=== PATIENT | female | born 1965 | race Caucasian/White ===

== ENCOUNTER 2017-09-06 13:42 | Emergency (ER) | payer BC ==
--- NOTE | 2017-09-06 15:58 | UC ---
Hip/Pelvis Pain - HPI Summary HPI Summary: WAS STANDING ON A BAR STOOL YESTERDAY TO PAINT. WAS REACHING FOR THE PAINT WHEN SHE FELL OFF. RIGHT HIP STRUCK A CABINET ON THE WAY DOWN. PT HERE WITH VERY TENDER SWOLLEN RIGHT BUTTOCK. ABLE TO WEIGHT BEAR WITHOUT DIFFICULTY. NO NUMBNESS/TINGLING. - History Of Current Complaint Chief Complaint: UCLowerExtremity Stated Complaint: FELL AREA ABOVE HIP INJURY Time Seen by Provider: 09/06/17 15:22 Hx Obtained From: Patient Onset/Duration: Sudden Onset, Lasting Days - 1 DAY, Still Present Timing: Constant Severity Initially: Moderate Severity Currently: Moderate Pain Intensity: 5 Pain Scale Used: 0-10 Numeric Character Of Pain: Sharp Aggravating Factor(s): Other - TOUCH Alleviating Factor(s): Rest Associated Signs And Symptoms: Positive: Swelling. Negative: Fever, Weakness, Knee Pain - Allergies/Home Medications Allergies/Adverse Reactions: Allergies Allergy/AdvReac Type Severity Reaction Status Date / Time No Known Allergies Allergy Verified 09/06/17 14:21 Home Medications: Home Medications Ibuprofen TAB* [Motrin TAB* 400 MG] 400 mg PO PRN 09/06/17 [History] PMH/Surg Hx/FS Hx/Imm Hx - Additional Past Medical History Additional PMH: OSTEOPOROSIS - Surgical History Surgical History: Yes Surgery Procedure, Year, and Place: c sect, ta - Family History Known Family History: Negative: Hypertension - Social History Alcohol Use: None Substance Use Type: None Smoking Status (MU): Never Smoked Tobacco Review of Systems Constitutional: Negative Skin: Negative Respiratory: Negative Cardiovascular: Negative Gastrointestinal: Negative Musculoskeletal: Edema, Myalgia All Other Systems Reviewed And Are Negative: Yes Physical Exam Triage Information Reviewed: Yes Appearance: Well-Appearing, No Pain Distress, Well-Nourished Vital Signs: Initial Vital Signs Temp 98.6 F 09/06/17 14:22 Pulse 72 09/06/17 14:22 Resp 16 09/06/17 14:22 BP 101/57 09/06/17 14:22 Pulse Ox 100 09/06/17 14:22 Vital Signs Reviewed: Yes Eyes: Positive: Conjunctiva Clear ENT: Positive: Hearing grossly normal Neck: Positive: Supple Respiratory: Positive: No respiratory distress, No accessory muscle use Cardiovascular: Positive: Pulses Normal Abdomen Description: Positive: Soft Musculoskeletal: Positive: ROM Intact, Edema @ - RIGHT BUTTOCK, WITH EXQUISITE TTP Neurological: Positive: Alert Psychological: Positive: Age Appropriate Behavior Skin: Negative: rashes Diagnostics - Radiology RIGHT HIP XRAY Xray Interpretation: No Acute Changes Radiology Interpretation Completed By: Radiologist Hip Injury Course/Dx - Differential Dx/Diagnosis Provider Diagnoses: HEMATOMA/CONTUSION RIGHT BUTTOCK Discharge - Discharge Plan Condition: Stable Disposition: HOME Patient Education Materials: Hematoma (ED) Referrals: Nicole Jones MD [Primary Care Provider] - If Needed Additional Instructions: XRAY TODAY NEGATIVE FOR FRACTURE OR DISLOCATION. ICE AND IBUPROFEN NEEDED. AVOID SITTING ON HARD SURFACES. CONTUSION: Your injury has resulted in a contusion -- a crushing of the deep tissues. No injury to important structures was detected during the physician's exam. Contusions vary in the amount of pain they cause, and in the length of time required for healing. Typically, the area will become bruised, and will remain painful to touch for two or three weeks. However, most patients are back to working and playing within a few days. After the initial period of rest and cold-packs, your symptoms (together with the doctor's recommendations) will determine how rapidly you can get back to full activity. Usually this means "do what feels okay, but don't do things that hurt." If re-examination was recommended, it's important to follow up as instructed. Call the doctor or return any time if pain increases, if swelling becomes severe, if you develop numbness or weakness in an injured extremity, or if any other alarming symptoms occur. SEEK FOLLOW-UP IF NOT IMPROVING EXPECTED. IT WILL LIKELY TAKE WEEKS TO MONTHS FOR COMPLETE RESOLUTION.
--- NOTE | 2017-09-06 16:15 | RAD ---
Indication: Right hip pain and swelling. 2 views of the right hip and an AP view of the pelvis demonstrates degenerative changes of the right hip. Pelvic ring is intact. There is no evidence of fracture noted. IMPRESSION: No fracture of the right hip is noted. Pelvic ring is intact.
[2017-09-06 16:53] VITALS: BP 91/43
== END 2017-09-06 16:50 | disposition home or self-care (01) ==
LOC: UCEAST 13:42
DX: S30.0XXA Contusion of lower back and pelvis, initial encounter (principal); W17.89XA Other fall from one level to another, initial encounter; Y93.89 Activity, other specified; Y92.9 Unspecified place or not applicable; M81.0 Age-related osteoporosis without current pathological fracture
CPT/HCPCS: 99212; G0463

== ENCOUNTER 2022-05-02 10:22 | Inpatient (IN) ==
[2022-05-02] MEDS ORDERED: NS 0.9% 500 ml BAG 500 ML IV ONE (10:30)
[2022-05-02] MEDS ORDERED: Ondansetron 4 mg VIAL 2 MG/ML 2 ml VIAL IV ONE (10:30)
[2022-05-02 10:56] LABS: Hematocrit 37 % (35-47); Hemoglobin 12.5 g/dL (12.0-16.0); Mean Corpuscular HGB Conc 34 g/dL (31-36); Mean Corpuscular Hemoglobin 34 pg (27-31); Mean Corpuscular Volume 99 fL (80-97); Red Blood Count 3.72 10^6 /uL (3.70-4.87); Red Cell Distribution Width 13 % (10-15); White Blood Count 6.9 10^3/uL (3.5-10.8)
[2022-05-02] MEDS ORDERED: Lactated Ringers 1000 ml BAG 1,000 ML IV ONE (11:03)
[2022-05-02] MEDS ORDERED: Azithromycin 500 mg/250 ml NS 500 MG/250 ML BAG IVPB ONE (11:04)
[2022-05-02] MEDS ORDERED: cefTRIAXone 1 gm/50 mL D5W 1 GM/50 ML BAG IV ONE (11:04)
[2022-05-02 11:09] LABS: High Sens Troponin Baseline 324 pg/mL (<15)
[2022-05-02 11:27] LABS: HCG Pregnancy 1.12 mIU/mL
[2022-05-02 11:31] LABS: PCO2 Arterial 30 mmHg (35-45); PO2 Arterial 64 mmHg (80-100)
[2022-05-02 11:51] LABS: RBC Morphology Normal (Normal)
[2022-05-02 11:52] LABS: ABS Lymphocytes 0.2 10^3/ul (1.0-4.8); ABS Monocytes 0.2 10^3/ul (0-0.8); ABS Neutrophils 6.5 10^3/ul (1.5-7.7); Lymphocyte % 3.5 %; Mean Platelet Volume 9.8 fL (7.4-10.4); Platelet Count 46 10^3/uL (150-450)
[2022-05-02 11:57] LABS: ALT 17 U/L (7-52); AST 46 U/L (13-39); Albumin 3.1 g/dL (3.2-5.2); Albumin/Globulin Ratio 1.3 (1-3); Alkaline Phosphatase 48 U/L (35-149); Anion Gap 11 mmol/L (2-11); Blood Urea Nitrogen 27 mg/dL (6-24); C Reactive Protein 238.17 mg/L (<8.01); CO2 Carbon Dioxide 23 mmol/L (22-32); Calcium 7.7 mg/dL (8.6-10.3); Chloride 98 mmol/L (101-111); Globulin 2.3 g/dL (2-4); Glucose 111 mg/dL (70-100); Lipase < 10 U/L (11.0-82.0); Potassium 3.9 mmol/L (3.5-5.0); Sodium 132 mmol/L (135-145); Total Protein 5.4 g/dL (6.4-8.9); eGFR CKD-EPI 84.1 (>60)
[2022-05-02] MEDS ORDERED: Adenosine 3 MG/ML 2 ml VIAL (6 mg) ONE (12:17)
[2022-05-02 12:18] LABS: High Sensitivity Troponin 1 Hr 342 pg/mL (<15)
[2022-05-02] MEDS ORDERED: Iodixanol (CONTRAST) 320 MG/ML 100 ML SDV IV ONE (12:18)
[2022-05-02] MEDS ORDERED: Adenosine 3 MG/ML 2 ml VIAL (6 mg) IV PUSH ONE ×4 (12:27→15:21)
[2022-05-02 14:36] LABS: Magnesium 1.7 mg/dL (1.9-2.7); Phosphorus 2.8 mg/dL (2.5-5.0)
[2022-05-02] MEDS ORDERED: Magnesium Sulfate IV 3 GM in NS 0.9% 100 ml BAG 100 ML IVPB ONE (14:45)
[2022-05-02] MEDS ORDERED: Magnesium Sulfate 2 GM IV (Premix) IVPB ONE (15:00)
[2022-05-02] MEDS ORDERED: Acetaminophen IV 1 GM/100ML 1,000 MG/100 ML BAG IV ONE (15:21)
[2022-05-02] MEDS: Acetaminophen IV 1 GM/100ML 1,000 MG/100 ML BAG IV PRN ×2 (15:23→21:32)
[2022-05-02] MEDS: NS 0.9% 1000 ml BAG 1,000 ML IV ONE ×2 (15:25→23:01)
[2022-05-02] MEDS ORDERED: Amiodarone 150 mg IVPREMIX 150 MG/100 ML BAG IV ONE (15:31)
[2022-05-02] MEDS ORDERED: Magnesium Sulfate 1 GM IV 1 GM/100 ML BAG IV ONE (16:00)
[2022-05-02] MEDS ORDERED: D5LR 1000 ml BAG 1,000 ML IV SCH (16:00)
[2022-05-02] MEDS ORDERED: KCL 20 MEQ/100 ML IVPREMIX 20 MEQ/100 ML BAG IV ONE (16:25)
[2022-05-02] MEDS: Enoxaparin 30 MG/0.3 ML SYR SUBCUT SCH (16:35)
[2022-05-02] MEDS: Metoprolol Tartrate 5 mg VIAL 5 ml VIAL (1 mg/ml) IV PRN (21:02)
[2022-05-02] MEDS ORDERED: Amiodarone 360 MG IVPREMIX 360 MG/200 ML BAG IV SCH (21:55)
[2022-05-02] MEDS ORDERED: Lactated Ringers 500 ml BAG 500 ML IV ONE ×2 (22:02→22:42)
[2022-05-03] MEDS ORDERED: Acetaminophen IV 1 GM/100ML 1,000 MG/100 ML BAG IV ONE (02:46)
[2022-05-03] MEDS ORDERED: Amiodarone 360 MG IVPREMIX 360 MG/200 ML BAG IV SCH ×2 (04:00→16:45)
[2022-05-03] MEDS ORDERED: Digoxin IV 0.5 MG/2 ML AMP (0.25 MG/ML) IV SLOW PU ONE (04:38)
[2022-05-03] MEDS ORDERED: Digoxin IV 0.5 MG/2 ML AMP (0.25 MG/ML) ONE (04:40)
[2022-05-03 05:31] LABS: Hematocrit 28 % (35-47); Hemoglobin 9.4 g/dL (12.0-16.0); Mean Corpuscular HGB Conc 33 g/dL (31-36); Mean Corpuscular Hemoglobin 33 pg (27-31); Mean Corpuscular Volume 100 fL (80-97); Mean Platelet Volume 10.3 fL (7.4-10.4); Platelet Count 41 10^3/uL (150-450); Red Blood Count 2.81 10^6 /uL (3.70-4.87); Red Cell Distribution Width 13 % (10-15); White Blood Count 4.4 10^3/uL (3.5-10.8)
[2022-05-03 05:39] LABS: Urine Appearance Cloudy; Urine Bilirubin Negative (Negative); Urine Blood 1+ (Negative); Urine Color Amber; Urine Glucose Negative (Negative); Urine Ketones Negative (Negative); Urine Nitrite Negative (Negative); Urine Protein 2+(100 mg/dL) (Negative); Urine Specific Gravity 1.035 (1.002-1.030); Urine Urobilinogen Positive (Negative)
[2022-05-03 05:48] LABS: Urine Bacteria Absent (Absent); Urine Red Blood Cell 2+(6-10/hpf) (Absent); Urine White Blood Cell Trace(0-5/hpf) (Absent)
[2022-05-03 05:52] LABS: Magnesium 1.7 mg/dL (1.9-2.7); Potassium 3.5 mmol/L (3.5-5.0); eGFR CKD-EPI 112.7 (>60)
[2022-05-03 05:55] LABS: Burr Cells 2+; Macrocytosis 1+; Toxic Granulation 1+
[2022-05-03 05:56] LABS: ABS Lymphocytes 0.1 10^3/ul (1.0-4.8); ABS Monocytes 0.2 10^3/ul (0-0.8); ABS Neutrophils 4.1 10^3/ul (1.5-7.7); Lymphocyte % 2.3 %; Nucleated Red Blood Cells % 0.1
[2022-05-03 06:03] LABS: TSH Ultra Thyroid Stim Horm 0.71 mcIU/mL (0.34-5.60)
[2022-05-03 06:20] LABS: Calcium 5.7 mg/dL (8.6-10.3)
[2022-05-03] MEDS: Metoprolol Tartrate 5 mg VIAL 5 ml VIAL (1 mg/ml) IV PRN ×2 (06:40→13:26)
[2022-05-03] MEDS ORDERED: Magnesium Sulfate 2 gm BAG 2 GM/50 ML BAG IVPB ONE (07:15)
[2022-05-03] MEDS: Acetaminophen IV 1 GM/100ML 1,000 MG/100 ML BAG IV PRN ×2 (07:38→18:54)
[2022-05-03] MEDS: KCL 20 MEQ/100 ML IVPREMIX 20 MEQ/100 ML BAG IV SCH ×2 (08:03→10:38)
[2022-05-03] MEDS ORDERED: Magnesium Sulfate 1 GM IV 1 GM/100 ML BAG IV ONE (08:15)
[2022-05-03 10:05] LABS: C Reactive Protein 188.59 mg/L (<8.01)
[2022-05-03 10:16] LABS: Hematocrit 29 % (35-47); Hemoglobin 9.9 g/dL (12.0-16.0); Mean Corpuscular HGB Conc 34 g/dL (31-36); Mean Corpuscular Hemoglobin 33 pg (27-31); Mean Corpuscular Volume 98 fL (80-97); Mean Platelet Volume 9.5 fL (7.4-10.4); Platelet Count 39 10^3/uL (150-450); Red Blood Count 2.99 10^6 /uL (3.70-4.87); Red Cell Distribution Width 13 % (10-15); White Blood Count 3.3 10^3/uL (3.5-10.8)
[2022-05-03 10:27] LABS: Folate 14.12 ng/mL (5.90-24.80)
[2022-05-03] MEDS ORDERED: CALCIUM GLUCONATE 1GM/50ML NS 1 GM/50 ML BAG IV ONE (10:56)
[2022-05-03 12:36] LABS: ABS Lymphocytes 0.1 10^3/ul (1.0-4.8); ABS Monocytes 0.1 10^3/ul (0-0.8); ABS Neutrophils 3.5 10^3/ul (1.5-7.7); Hematocrit 31 % (35-47); Hemoglobin 10.7 g/dL (12.0-16.0); Lymphocyte % 2.3 %; Mean Corpuscular HGB Conc 35 g/dL (31-36); Mean Corpuscular Hemoglobin 35 pg (27-31); Mean Corpuscular Volume 100 fL (80-97); Mean Platelet Volume 9.6 fL (7.4-10.4); Nucleated Red Blood Cells % 0.1; Platelet Count 44 10^3/uL (150-450); Red Blood Count 3.07 10^6 /uL (3.70-4.87); Red Cell Distribution Width 13 % (10-15); White Blood Count 3.7 10^3/uL (3.5-10.8)
[2022-05-03 12:37] LABS: Platelet Count 52 10^3/ul (150-450)
[2022-05-03 12:49] LABS: Activated Partial Thrombo Time 28.5 seconds (26.0-38.0); INR 1.25 (0.89-1.11)
[2022-05-03] MEDS ORDERED: LORazepam 2 mg VIAL 1 ml IV PUSH ONE (13:10)
[2022-05-03] MEDS ORDERED: Lorazepam PYXIS KEY PRN (13:10)
[2022-05-03] MEDS ORDERED: Furosemide 20 mg/2 ml IV VIAL IV ONE (13:26)
[2022-05-03] MEDS ORDERED: Digoxin IV 0.5 MG/2 ML AMP (0.25 MG/ML) IV SLOW PU SCH (14:00)
[2022-05-03 14:36] LABS: PCO2 Arterial 41 mmHg (35-45)
[2022-05-03 14:37] LABS: PO2 Arterial 59 mmHg (80-100)
[2022-05-03] MEDS ORDERED: Piperacillin/Tazobac ADVAN 3.375 GM in NS 0.9% 100 ml BAG 100 ML IV ONE (14:41)
[2022-05-03] MEDS ORDERED: cefTRIAXone 1 gm/50 mL D5W 1 GM/50 ML BAG IV SCH (14:45)
[2022-05-03 14:53] LABS: Schistocytes ABSENT
[2022-05-03] MEDS ORDERED: ZOSYN 3.375 GM x ONE DOSE over 30 miuntes IV (15:00)
[2022-05-03] MEDS ORDERED: Azithromycin 500 mg/250 ml NS 500 MG/250 ML BAG IVPB SCH (15:00)
[2022-05-03] MEDS ORDERED: Zosyn per Pharmacy NOTE FOLLOW UP SCH ×2 (15:00)
[2022-05-03] MEDS ORDERED: Rocuronium 50 mg VIAL 10 mg/ml 5 ml VIAL (50 mg) IV ONE (15:17)
[2022-05-03] MEDS ORDERED: Etomidate 20 mg/10 ml 2 MG/ML 10 ml VIAL IV ONE (15:17)
[2022-05-03] MEDS ORDERED: Etomidate 40 mg/20 ml (2 MG/ML) 20 ml VIAL (40 mg) ONE (15:18)
[2022-05-03] MEDS ORDERED: Phenylephrine 40 mcg/mL 10mL (400mcg) SYRINGE IV ONE (15:23)
[2022-05-03] MEDS ORDERED: Rocuronium 50 mg VIAL 10 mg/ml 5 ml VIAL (50 mg) ONE (15:30)
[2022-05-03] MEDS ORDERED: PHENYLEPHRINE IV ONE (15:30)
[2022-05-03] MEDS ORDERED: Succinylcholine 200 mg VIAL 20 mg/ml 10 ml VIAL (200 mg) ONE (15:30)
[2022-05-03] MEDS: Dexmedetomidine 1,000 MCG in NS 0.9% 250 ml 240 ML IV SCH (16:05)
[2022-05-03] MEDS ORDERED: Amiodarone IV 150 mg/3 ml VIAL IV PUSH ONE (16:17)
[2022-05-03] MEDS ORDERED: Amiodarone 150 mg IVPREMIX 150 MG/100 ML BAG IV ONE ×2 (16:26→16:31)
[2022-05-03] MEDS ORDERED: .Amiodarone 24HR ONLY IV Protocol Order Note IV ONE (16:31)
[2022-05-03] MEDS: Enoxaparin 30 MG/0.3 ML SYR SUBCUT SCH (16:55)
[2022-05-03] MEDS ORDERED: Enoxaparin 40 MG/0.4 ML SYR SUBCUT SCH (17:00)
[2022-05-03] MEDS ORDERED: Chlorhexidine MOUTHWASH 0.12% 15 ML UDC TOPICAL SCH ×2 (17:00→18:00)
[2022-05-03] MEDS ORDERED: Amiodarone 360 MG IVPREMIX 360 MG/200 ML BAG IV ONE (17:03)
[2022-05-03] MEDS: Pantoprazole VIAL 40 MG VIAL IV SCH (17:05)
[2022-05-03] MEDS ORDERED: Propofol 10 mg/ml 100 ML BTL 100 ML ONE (17:09)
[2022-05-03] MEDS: Propofol 10 mg/ml 100 ML BTL 100 ML IV SCH (17:10)
[2022-05-03 17:21] LABS: PCO2 Arterial 38 mmHg (35-45); PO2 Arterial 106 mmHg (80-100)
[2022-05-03 17:25] LABS: Calcium 7.5 mg/dL (8.6-10.3); Phosphorus 1.6 mg/dL (2.5-5.0); Potassium 3.9 mmol/L (3.5-5.0); eGFR CKD-EPI 112.7 (>60)
[2022-05-03] MEDS: Midazolam 2 mg/2 ml VIAL 1 mg/ml 2 ml VIAL (2 mg) IV SLOW PU PRN (17:36)
[2022-05-03] MEDS ORDERED: fentaNYL 100 mcg/2 ml 50 MCG/ML VIAL IV SLOW PU PRN (18:26)
[2022-05-03] MEDS ORDERED: Potassium Phosphate IV 15 MMOLE in NS 0.9% 250 ml 250 ML IVPB ONE (18:38)
[2022-05-03 19:26] LABS: Albumin 2.6 g/dL (3.2-5.2); Albumin/Globulin Ratio 1.1 (1-3); Globulin 2.4 g/dL (2-4)
[2022-05-03] MEDS ORDERED: PHENYLEPHRINE DRIP IVPREMIX 50 MG/250 ML BAG IV ONE (19:31)
[2022-05-03] MEDS: PHENYLEPHRINE DRIP IVPREMIX 50 MG/250 ML BAG IV SCH (19:48)
[2022-05-03] MEDS: ZOSYN 3.375 GM Q8H per EXTENDED INFUSION IV SCH (21:31)
[2022-05-03 23:04] LABS: Hematocrit 27 % (35-47); Hemoglobin 9.2 g/dL (12.0-16.0)
[2022-05-03] MEDS: Amiodarone 360 MG IVPREMIX 360 MG/200 ML BAG IV SCH (23:08)
[2022-05-04] MEDS ORDERED: fentaNYL 100 mcg/2 ml 50 MCG/ML VIAL IV SLOW PU SCH
[2022-05-04] MEDS: Propofol 10 mg/ml 100 ML BTL 100 ML IV SCH ×2 (01:41→13:56)
[2022-05-04] MEDS ORDERED: Lorazepam PYXIS KEY ONE ×2 (03:57→06:07)
[2022-05-04] MEDS ORDERED: LORazepam 2 mg VIAL 1 ml ONE ×2 (03:57→06:08)
[2022-05-04] MEDS ORDERED: Lorazepam PYXIS KEY PRN ×2 (04:06→06:07)
[2022-05-04] MEDS ORDERED: LORazepam 2 mg VIAL 1 ml IV PUSH ONE ×2 (04:06→06:07)
[2022-05-04 04:28] LABS: ABS Lymphocytes 0.1 10^3/ul (1.0-4.8); ABS Monocytes 0.2 10^3/ul (0-0.8); ABS Neutrophils 4.2 10^3/ul (1.5-7.7); Eosinophil % 0.2 %; Hematocrit 35 % (35-47); Hemoglobin 11.9 g/dL (12.0-16.0); Lymphocyte % 2.8 %; Mean Corpuscular HGB Conc 34 g/dL (31-36); Mean Corpuscular Hemoglobin 34 pg (27-31); Mean Corpuscular Volume 100 fL (80-97); Mean Platelet Volume 10.1 fL (7.4-10.4); Nucleated Red Blood Cells % 0.3; Platelet Count 37 10^3/uL (150-450); Red Blood Count 3.51 10^6 /uL (3.70-4.87); Red Cell Distribution Width 14 % (10-15); White Blood Count 4.5 10^3/uL (3.5-10.8)
[2022-05-04] MEDS ORDERED: CALCIUM GLUCONATE 1GM/50ML NS 1 GM/50 ML BAG IV ONE (04:51)
[2022-05-04 05:04] LABS: Blood Urea Nitrogen 11 mg/dL (6-24); CO2 Carbon Dioxide 18 mmol/L (22-32); Calcium 7.1 mg/dL (8.6-10.3); Chloride 104 mmol/L (101-111); Glucose 84 mg/dL (70-100); Magnesium 2.1 mg/dL (1.9-2.7); Sodium 131 mmol/L (135-145); eGFR CKD-EPI 110.3 (>60)
[2022-05-04 05:09] LABS: Anion Gap 9 mmol/L (2-11)
[2022-05-04] MEDS: ZOSYN 3.375 GM Q8H per EXTENDED INFUSION IV SCH (05:09)
[2022-05-04 05:35] LABS: Potassium, Whole Blood 4.2 mmol/L (3.4-4.5)
[2022-05-04 06:27] LABS: PCO2 Arterial 34 mmHg (35-45); PO2 Arterial 156 mmHg (80-100)
[2022-05-04 07:54] LABS: Creatine Kinase 252 U/L (10-223)
[2022-05-04] MEDS: Acetaminophen IV 1 GM/100ML 1,000 MG/100 ML BAG IV PRN (08:47)
[2022-05-04] MEDS: cefTRIAXone 2 gm/50 mL D5W 2 GM/50 ML BAG IV SCH ×2 (09:10→20:01)
[2022-05-04] MEDS: Ampicillin ADVAN 2 GM in NS 0.9% 100 ml BAG 100 ML IVPB SCH ×4 (09:47→21:07)
[2022-05-04] MEDS: Amiodarone 360 MG IVPREMIX 360 MG/200 ML BAG IV SCH ×2 (09:55→22:11)
[2022-05-04] MEDS ORDERED: Thiamine 100 MG/ML 2 ml VIAL 500 MG in NS 0.9% 250 ml 250 ML IV ONE ×2 (10:00→19:30)
[2022-05-04 10:34] LABS: Direct Bilirubin 0.2 mg/dL (0.03-0.18); Indirect Bilirubin 0.5 mg/dL (0.3-1.0); Total Bilirubin 0.7 mg/dL (0.2-1.0)
[2022-05-04] MEDS: DOXYcycline 100 MG in NS 0.9% 250 ml 250 ML IVPB SCH ×2 (10:55→22:08)
[2022-05-04] MEDS: Acyclovir IV 500 MG in NS 0.9% 100 ml BAG 100 ML IVPB SCH ×2 (10:58→17:13)
[2022-05-04] MEDS ORDERED: Potassium Phosphate IV 15 MMOLE in NS 0.9% 250 ml 250 ML IVPB ONE (11:10)
[2022-05-04] MEDS: Metoprolol Tartrate 5 mg VIAL 5 ml VIAL (1 mg/ml) IV PRN (12:41)
[2022-05-04] MEDS: PHENYLEPHRINE DRIP IVPREMIX 50 MG/250 ML BAG IV SCH (14:13)
[2022-05-04] MEDS: fentaNYL 100 mcg/2 ml 50 MCG/ML VIAL IV SLOW PU PRN (15:06)
[2022-05-04 17:07] LABS: Hematocrit 30 % (35-47); Hemoglobin 9.9 g/dL (12.0-16.0); Mean Corpuscular HGB Conc 34 g/dL (31-36); Mean Corpuscular Hemoglobin 33 pg (27-31); Mean Corpuscular Volume 99 fL (80-97); Mean Platelet Volume 10.8 fL (7.4-10.4); Platelet Count 45 10^3/uL (150-450); Red Blood Count 3.01 10^6 /uL (3.70-4.87); Red Cell Distribution Width 14 % (10-15); White Blood Count 5.9 10^3/uL (3.5-10.8)
[2022-05-04] MEDS: Pantoprazole VIAL 40 MG VIAL IV SCH (17:13)
[2022-05-04 17:34] LABS: ABS Lymphocytes 0.1 10^3/ul (1.0-4.8); ABS Monocytes 0.3 10^3/ul (0-0.8); ABS Neutrophils 5.5 10^3/ul (1.5-7.7); Eosinophil % 0.1 %; Nucleated Red Blood Cells % 0.1
[2022-05-04 17:40] LABS: RBC Morphology Normal (Normal); Toxic Granulation 2+
[2022-05-04 17:41] LABS: Dohle Bodies Present
[2022-05-04] MEDS ORDERED: Furosemide 20 mg/2 ml IV VIAL IV ONE (23:05)
[2022-05-05] MEDS: Ampicillin ADVAN 2 GM in NS 0.9% 100 ml BAG 100 ML IVPB SCH ×3 (00:30→09:41)
[2022-05-05] MEDS: Dexmedetomidine 1,000 MCG in NS 0.9% 250 ml 240 ML IV SCH (00:35)
[2022-05-05] MEDS: Acyclovir IV 500 MG in NS 0.9% 100 ml BAG 100 ML IVPB SCH ×3 (01:24→17:11)
[2022-05-05] MEDS: Propofol 10 mg/ml 100 ML BTL 100 ML IV SCH ×3 (01:55→18:37)
[2022-05-05] MEDS: Chlorhexidine MOUTHWASH 0.12% 15 ML UDC TOPICAL SCH ×6 (03:00→21:59)
[2022-05-05 05:54] LABS: ABS Basophils 0.1 10^3/ul (0-0.2); ABS Lymphocytes 0.2 10^3/ul (1.0-4.8); ABS Monocytes 0.4 10^3/ul (0-0.8); ABS Neutrophils 5.8 10^3/ul (1.5-7.7); Eosinophil % 0.3 %; Hematocrit 29 % (35-47); Hemoglobin 9.9 g/dL (12.0-16.0); Lymphocyte % 3.3 %; Mean Corpuscular HGB Conc 34 g/dL (31-36); Mean Corpuscular Hemoglobin 34 pg (27-31); Mean Corpuscular Volume 99 fL (80-97); Mean Platelet Volume 10.2 fL (7.4-10.4); Nucleated Red Blood Cells % 0.1; Platelet Count 52 10^3/uL (150-450); Red Blood Count 2.93 10^6 /uL (3.70-4.87); Red Cell Distribution Width 14 % (10-15); White Blood Count 6.5 10^3/uL (3.5-10.8)
[2022-05-05 06:00] LABS: INR 0.94 (0.89-1.11)
[2022-05-05 06:15] LABS: C Reactive Protein 345.79 mg/L (<8.01); Calcium 6.5 mg/dL (8.6-10.3); Magnesium 1.8 mg/dL (1.9-2.7); Phosphorus 1.9 mg/dL (2.5-5.0); Potassium 2.8 mmol/L (3.5-5.0); eGFR CKD-EPI 110.9 (>60)
[2022-05-05] MEDS ORDERED: Calcium Gluconate 2 GM in NS 0.9% 100 ml BAG 100 ML IV ONE (07:50)
[2022-05-05] MEDS ORDERED: Magnesium Sulfate 2 gm BAG 2 GM/50 ML BAG IVPB ONE (07:52)
[2022-05-05] MEDS: KCL 20 MEQ/100 ML IVPREMIX 20 MEQ/100 ML BAG IV SCH ×4 (07:57→14:45)
[2022-05-05] MEDS ORDERED: Potassium Phosphate IV 15 MMOLE in NS 0.9% 250 ml 250 ML IVPB ONE (08:04)
[2022-05-05 08:11] LABS: PCO2 Arterial 35 mmHg (35-45); PO2 Arterial 93 mmHg (80-100)
[2022-05-05] MEDS: cefTRIAXone 2 gm/50 mL D5W 2 GM/50 ML BAG IV SCH ×2 (08:17→21:02)
[2022-05-05] MEDS ORDERED: Furosemide 20 mg/2 ml IV VIAL IV ONE (10:42)
[2022-05-05] MEDS: DOXYcycline 100 MG in NS 0.9% 250 ml 250 ML IVPB SCH ×2 (10:48→21:59)
[2022-05-05] MEDS: fentaNYL 100 mcg/2 ml 50 MCG/ML VIAL IV SLOW PU PRN ×2 (11:23→15:00)
[2022-05-05] MEDS ORDERED: Thiamine 100 MG/ML 2 ml VIAL 500 MG in NS 0.9% 250 ml 250 ML IV ONE ×2 (11:47→20:00)
[2022-05-05] MEDS: Azithromycin 500 mg/250 ml NS 500 MG/250 ML BAG IVPB SCH (12:33)
[2022-05-05 13:34] LABS: HIV 4th Generation Nonreactive (Nonreactive)
[2022-05-05 14:02] LABS: RBC Parasite Smear No Parasites Seen (No Parasite)
[2022-05-05] MEDS: PHENYLEPHRINE DRIP IVPREMIX 50 MG/250 ML BAG IV SCH (14:55)
[2022-05-05] MEDS ORDERED: Gadoteridol (CONTRAST) 279.3 MG/ML 10 ML IV ONE (16:02)
[2022-05-05] MEDS: Pantoprazole VIAL 40 MG VIAL IV SCH (17:10)
[2022-05-05 17:53] LABS: Blood Urea Nitrogen 11 mg/dL (6-24); CO2 Carbon Dioxide 24 mmol/L (22-32); Chloride 109 mmol/L (101-111); Glucose 88 mg/dL (70-100); Magnesium 2.1 mg/dL (1.9-2.7); Sodium 139 mmol/L (135-145); eGFR CKD-EPI 108.6 (>60)
[2022-05-05 18:15] LABS: Anion Gap 6 mmol/L (2-11)
[2022-05-05] MEDS ORDERED: Potassium Chloride LIQUID 20 MEQ/15 ML LIQUID PO ONE ×2 (21:00→21:27)
[2022-05-05 21:20] LABS: Calcium 6.8 mg/dL (8.6-10.3); Potassium 3.5 mmol/L (3.5-5.0); eGFR CKD-EPI 109.2 (>60)
[2022-05-05 21:43] LABS: Phosphorus 2.2 mg/dL (2.5-5.0)
[2022-05-06] MEDS: Acyclovir IV 500 MG in NS 0.9% 100 ml BAG 100 ML IVPB SCH ×3 (01:20→16:45)
[2022-05-06] MEDS: Propofol 10 mg/ml 100 ML BTL 100 ML IV SCH ×3 (02:17→18:04)
[2022-05-06] MEDS: Chlorhexidine MOUTHWASH 0.12% 15 ML UDC TOPICAL SCH ×6 (03:11→21:42)
[2022-05-06 05:31] LABS: Urine Appearance Cloudy; Urine Bilirubin Negative (Negative); Urine Blood Negative (Negative); Urine Color Yellow; Urine Glucose Negative (Negative); Urine Ketones 1+ (Negative); Urine Nitrite Negative (Negative); Urine Protein 1+(30 mg/dL) (Negative); Urine Urobilinogen Negative (Negative)
[2022-05-06 05:50] LABS: Hematocrit 28 % (35-47); Hemoglobin 9.5 g/dL (12.0-16.0); Mean Corpuscular HGB Conc 34 g/dL (31-36); Mean Corpuscular Hemoglobin 33 pg (27-31); Mean Corpuscular Volume 98 fL (80-97); Mean Platelet Volume 10.2 fL (7.4-10.4); Platelet Count 77 10^3/uL (150-450); Red Blood Count 2.84 10^6 /uL (3.70-4.87); Red Cell Distribution Width 14 % (10-15); White Blood Count 8.1 10^3/uL (3.5-10.8)
[2022-05-06 06:34] LABS: Phosphorus 1.9 mg/dL (2.5-5.0); Potassium 4.2 mmol/L (3.5-5.0); eGFR CKD-EPI 111.4 (>60)
[2022-05-06 06:57] LABS: Urine Bacteria Absent (Absent); Urine Granular Casts Present (Absent); Urine Red Blood Cell 2+(6-10/hpf) (Absent); Urine White Blood Cell 1+(6-10/hpf) (Absent)
[2022-05-06 07:47] LABS: ADAMTS13 Activity Assay 44 % (>/=70)
[2022-05-06 08:21] LABS: C Reactive Protein 251.12 mg/L (<8.01)
[2022-05-06] MEDS ORDERED: Furosemide 40 mg/4 ml IV VIAL ONE (09:05)
[2022-05-06] MEDS: Dexmedetomidine 1,000 MCG in NS 0.9% 250 ml 240 ML IV SCH (09:09)
[2022-05-06] MEDS ORDERED: LORazepam 2 mg VIAL 1 ml IV PUSH ONE ×2 (09:12→10:49)
[2022-05-06] MEDS ORDERED: LORazepam 2 mg VIAL 1 ml ONE (09:12)
[2022-05-06] MEDS ORDERED: Lorazepam PYXIS KEY PRN ×2 (09:12→10:49)
[2022-05-06] MEDS ORDERED: CALCIUM GLUCONATE 1GM/50ML NS 1 GM/50 ML BAG IV ONE (09:13)
[2022-05-06 09:14] LABS: ABS Basophils 0.1 10^3/ul (0-0.2); ABS Lymphocytes 0.5 10^3/ul (1.0-4.8); ABS Monocytes 0.6 10^3/ul (0-0.8); Eosinophil % 0.2 %; Lymphocyte % 5.7 %; Nucleated Red Blood Cells % 0.1
[2022-05-06] MEDS: cefTRIAXone 2 gm/50 mL D5W 2 GM/50 ML BAG IV SCH ×2 (09:42→20:09)
[2022-05-06] MEDS: Thiamine 100 MG/ML 2 ml VIAL 250 MG in NS 0.9% 100 ml BAG 100 ML IV SCH (09:48)
[2022-05-06] MEDS ORDERED: Potassium Phosphate IV 15 MMOLE in NS 0.9% 250 ml 250 ML IVPB ONE (10:00)
[2022-05-06] MEDS ORDERED: Furosemide 40 mg/4 ml IV VIAL IV SLOW PU ONE (10:57)
[2022-05-06] MEDS: Acetaminophen IV 1 GM/100ML 1,000 MG/100 ML BAG IV PRN (11:03)
[2022-05-06] MEDS: DOXYcycline 100 MG in NS 0.9% 250 ml 250 ML IVPB SCH ×2 (11:32→21:42)
[2022-05-06] MEDS: Azithromycin 500 mg/250 ml NS 500 MG/250 ML BAG IVPB SCH (11:36)
[2022-05-06] MEDS ORDERED: Thiamine 100 MG/ML 2 ml VIAL 100 MG in NS 0.9% 50 ML 50 ML IV SCH (12:00)
[2022-05-06] MEDS: PHENYLEPHRINE DRIP IVPREMIX 50 MG/250 ML BAG IV SCH (12:35)
[2022-05-06] MEDS: Midazolam 2 mg/2 ml VIAL 1 mg/ml 2 ml VIAL (2 mg) IV SLOW PU PRN ×2 (14:29→22:19)
[2022-05-06] MEDS: Pantoprazole VIAL 40 MG VIAL IV SCH (16:45)
[2022-05-07] MEDS: Acyclovir IV 500 MG in NS 0.9% 100 ml BAG 100 ML IVPB SCH ×3 (00:43→17:48)
[2022-05-07] MEDS: Propofol 10 mg/ml 100 ML BTL 100 ML IV SCH ×3 (01:28→14:48)
[2022-05-07] MEDS: Chlorhexidine MOUTHWASH 0.12% 15 ML UDC TOPICAL SCH ×6 (01:29→21:58)
[2022-05-07] MEDS: fentaNYL 100 mcg/2 ml 50 MCG/ML VIAL IV SLOW PU PRN ×4 (01:37→22:51)
[2022-05-07 04:54] LABS: Hematocrit 26 % (35-47); Hemoglobin 8.7 g/dL (12.0-16.0); Mean Corpuscular HGB Conc 33 g/dL (31-36); Mean Corpuscular Hemoglobin 32 pg (27-31); Mean Corpuscular Volume 98 fL (80-97); Mean Platelet Volume 9.3 fL (7.4-10.4); Platelet Count 77 10^3/uL (150-450); Red Blood Count 2.69 10^6 /uL (3.70-4.87); Red Cell Distribution Width 14 % (10-15); White Blood Count 7.2 10^3/uL (3.5-10.8)
[2022-05-07 05:55] LABS: Calcium 6.9 mg/dL (8.6-10.3); Magnesium 1.8 mg/dL (1.9-2.7); Potassium 3.4 mmol/L (3.5-5.0)
[2022-05-07 06:01] LABS: C Reactive Protein 187.39 mg/L (<8.01); Phosphorus 2.4 mg/dL (2.5-5.0); eGFR CKD-EPI 110.3 (>60)
[2022-05-07 06:35] LABS: ABS Basophils 0.1 10^3/ul (0-0.2); ABS Monocytes 0.3 10^3/ul (0-0.8); ABS Neutrophils 5.8 10^3/ul (1.5-7.7); Eosinophil % 0.4 %; Lymphocyte % 13.2 %; Nucleated Red Blood Cells % 0.1
[2022-05-07] MEDS: Acetaminophen IV 1 GM/100ML 1,000 MG/100 ML BAG IV PRN (07:00)
[2022-05-07] MEDS ORDERED: DOXYcycline 100 MG in NS 0.9% 250 ml 250 ML IVPB SCH (08:00)
[2022-05-07] MEDS: Midazolam 2 mg/2 ml VIAL 1 mg/ml 2 ml VIAL (2 mg) IV SLOW PU PRN ×4 (09:09→20:43)
[2022-05-07] MEDS: Dexmedetomidine 1,000 MCG in NS 0.9% 250 ml 240 ML IV SCH (09:13)
[2022-05-07] MEDS ORDERED: Magnesium Sulfate IV 3 GM in NS 0.9% 100 ml BAG 100 ML IVPB ONE (09:37)
[2022-05-07] MEDS ORDERED: Furosemide 20 mg/2 ml IV VIAL IV SLOW PU ONE (09:55)
[2022-05-07] MEDS: cefTRIAXone 2 gm/50 mL D5W 2 GM/50 ML BAG IV SCH ×2 (09:56→20:15)
[2022-05-07] MEDS: KCL 20 MEQ/100 ML IVPREMIX 20 MEQ/100 ML BAG IV SCH ×4 (10:00→16:40)
[2022-05-07] MEDS: Thiamine 100 MG/ML 2 ml VIAL 250 MG in NS 0.9% 100 ml BAG 100 ML IV SCH (10:09)
[2022-05-07] MEDS: DOXYcycline 100 MG in NS 0.9% 250 ml 250 ML IVPB SCH ×2 (10:57→21:58)
[2022-05-07] MEDS ORDERED: Midazolam 5 mg/5 ml VIAL 1 mg/ml 5 ml VIAL (5 mg) ONE (14:11)
[2022-05-07] MEDS ORDERED: Acetylcysteine ORAL SOL 200 mg/ml 30 ml VIAL ONE (14:12)
[2022-05-07 16:15] LABS: Anaplasma phagocytophilum Positive (Negative); B. miyamotoi PCR, B Negative (Negative); Babesia divergens/MO-1 Negative (Negative); Babesia ducani Negative (Negative); Ehrlichia chaffeensis Negative (Negative); Ehrlichia ewingii/canis Negative (Negative); Ehrlichia muris eauclairensis Negative (Negative)
[2022-05-07] MEDS: Enoxaparin 30 MG/0.3 ML SYR SUBCUT SCH (16:40)
[2022-05-07] MEDS: Pantoprazole VIAL 40 MG VIAL IV SCH (16:40)
[2022-05-07 18:23] LABS: Ferritin 1966.1 ng/mL (11-307)
[2022-05-08] MEDS: Propofol 10 mg/ml 100 ML BTL 100 ML IV SCH ×2 (00:50→07:17)
[2022-05-08] MEDS: Midazolam 2 mg/2 ml VIAL 1 mg/ml 2 ml VIAL (2 mg) IV SLOW PU PRN ×2 (01:50→04:40)
[2022-05-08] MEDS: Acyclovir IV 500 MG in NS 0.9% 100 ml BAG 100 ML IVPB SCH ×2 (01:51→09:24)
[2022-05-08] MEDS: Chlorhexidine MOUTHWASH 0.12% 15 ML UDC TOPICAL SCH ×3 (01:54→09:34)
[2022-05-08 05:15] LABS: Hematocrit 24 % (35-47); Hemoglobin 8.2 g/dL (12.0-16.0); Mean Corpuscular HGB Conc 34 g/dL (31-36); Mean Corpuscular Hemoglobin 33 pg (27-31); Mean Corpuscular Volume 98 fL (80-97); Mean Platelet Volume 9.4 fL (7.4-10.4); Platelet Count 104 10^3/uL (150-450); Red Blood Count 2.45 10^6 /uL (3.70-4.87); Red Cell Distribution Width 14 % (10-15); White Blood Count 8.4 10^3/uL (3.5-10.8)
[2022-05-08 05:50] LABS: Calcium 6.9 mg/dL (8.6-10.3); Magnesium 2.1 mg/dL (1.9-2.7); Phosphorus 2.1 mg/dL (2.5-5.0); Potassium 3.9 mmol/L (3.5-5.0); eGFR CKD-EPI 114.7 (>60)
[2022-05-08 06:18] LABS: ABS Basophils 0.1 10^3/ul (0-0.2); ABS Eosinophils 0.1 10^3/ul (0-0.6); ABS Lymphocytes 2.5 10^3/ul (1.0-4.8); ABS Monocytes 0.4 10^3/ul (0-0.8); ABS Neutrophils 5.3 10^3/ul (1.5-7.7); Eosinophil % 0.8 %; Lymphocyte % 29.5 %; Nucleated Red Blood Cells % 0.1
[2022-05-08] MEDS: fentaNYL 100 mcg/2 ml 50 MCG/ML VIAL IV SLOW PU PRN (06:26)
[2022-05-08] MEDS: PHENYLEPHRINE DRIP IVPREMIX 50 MG/250 ML BAG IV SCH (06:32)
[2022-05-08] MEDS ORDERED: CALCIUM GLUCONATE 1GM/50ML NS 1 GM/50 ML BAG IV ONE (07:31)
[2022-05-08] MEDS ORDERED: Potassium Phosphate IV 10 MMOLE in NS 0.9% 250 ml 250 ML IVPB ONE (07:46)
[2022-05-08] MEDS: cefTRIAXone 2 gm/50 mL D5W 2 GM/50 ML BAG IV SCH ×2 (08:09→19:46)
[2022-05-08] MEDS: Thiamine 100 MG/ML 2 ml VIAL 250 MG in NS 0.9% 100 ml BAG 100 ML IV SCH (09:24)
[2022-05-08] MEDS: DOXYcycline 100 MG in NS 0.9% 250 ml 250 ML IVPB SCH ×2 (09:44→20:50)
[2022-05-08] MEDS ORDERED: Furosemide 20 mg/2 ml IV VIAL IV ONE (11:16)
[2022-05-08] MEDS: Enoxaparin 30 MG/0.3 ML SYR SUBCUT SCH (16:15)
[2022-05-08] MEDS: Pantoprazole VIAL 40 MG VIAL IV SCH (16:15)
[2022-05-08] MEDS ORDERED: Ondansetron 4 mg VIAL 2 MG/ML 2 ml VIAL IV ONE (23:20)
[2022-05-09 04:15] LABS: Hematocrit 24 % (35-47); Hemoglobin 7.8 g/dL (12.0-16.0); Mean Corpuscular HGB Conc 33 g/dL (31-36); Mean Corpuscular Hemoglobin 32 pg (27-31); Mean Corpuscular Volume 98 fL (80-97); Mean Platelet Volume 9.1 fL (7.4-10.4); Platelet Count 139 10^3/uL (150-450); Red Blood Count 2.44 10^6 /uL (3.70-4.87); Red Cell Distribution Width 14 % (10-15); White Blood Count 7.4 10^3/uL (3.5-10.8)
[2022-05-09 04:32] LABS: C Reactive Protein 121.63 mg/L (<8.01); Calcium 7.2 mg/dL (8.6-10.3); Phosphorus 2.8 mg/dL (2.5-5.0); Potassium 3.7 mmol/L (3.5-5.0); eGFR CKD-EPI 121.9 (>60)
[2022-05-09 05:15] LABS: ABS Lymphocytes 2.4 10^3/ul (1.0-4.8); ABS Monocytes 0.3 10^3/ul (0-0.8); ABS Neutrophils 4.6 10^3/ul (1.5-7.7); Eosinophil % 0.1 %; Lymphocyte % 32.6 %; Nucleated Red Blood Cells % 0.1
[2022-05-09] MEDS ORDERED: Potassium Chloride LIQUID 20 MEQ/15 ML LIQUID PO ONE (07:32)
[2022-05-09] MEDS: cefTRIAXone 2 gm/50 mL D5W 2 GM/50 ML BAG IV SCH ×2 (08:32→20:00)
[2022-05-09] MEDS: Thiamine 100 MG/ML 2 ml VIAL 250 MG in NS 0.9% 100 ml BAG 100 ML IV SCH (09:53)
[2022-05-09] MEDS: DOXYcycline 100 MG in NS 0.9% 250 ml 250 ML IVPB SCH (10:56)
[2022-05-09] MEDS ORDERED: Furosemide 40 mg/4 ml IV VIAL IV SLOW PU ONE (14:32)
[2022-05-09] MEDS: Enoxaparin 30 MG/0.3 ML SYR SUBCUT SCH (16:07)
[2022-05-09] MEDS: Pantoprazole VIAL 40 MG VIAL IV SCH (16:07)
[2022-05-10] MEDS: DOXYcycline 100 MG in NS 0.9% 250 ml 250 ML IVPB SCH ×3 (00:04→21:50)
[2022-05-10 06:23] LABS: Hematocrit 24 % (35-47); Hemoglobin 7.7 g/dL (12.0-16.0); Mean Corpuscular HGB Conc 33 g/dL (31-36); Mean Corpuscular Hemoglobin 33 pg (27-31); Mean Corpuscular Volume 99 fL (80-97); Mean Platelet Volume 9.4 fL (7.4-10.4); Platelet Count 140 10^3/uL (150-450); Red Blood Count 2.38 10^6 /uL (3.70-4.87); Red Cell Distribution Width 14 % (10-15); White Blood Count 6.6 10^3/uL (3.5-10.8)
[2022-05-10 06:43] LABS: ABS Basophils 0.1 10^3/ul (0-0.2); ABS Eosinophils 0.1 10^3/ul (0-0.6); ABS Monocytes 0.5 10^3/ul (0-0.8); ABS Neutrophils 3.9 10^3/ul (1.5-7.7); Anisocytosis 1+; Lymphocyte % 30.2 %; Nucleated Red Blood Cells % 0.2; Polychromasia 1+; Toxic Granulation 1+
[2022-05-10 06:59] LABS: Calcium 7.6 mg/dL (8.6-10.3); Phosphorus 2.6 mg/dL (2.5-5.0); Potassium 3.9 mmol/L (3.5-5.0); eGFR CKD-EPI 116.8 (>60)
[2022-05-10] MEDS: cefTRIAXone 2 gm/50 mL D5W 2 GM/50 ML BAG IV SCH ×2 (07:40→19:48)
[2022-05-10] MEDS: Thiamine 100 MG/ML 2 ml VIAL 250 MG in NS 0.9% 100 ml BAG 100 ML IV SCH (08:45)
[2022-05-10] MEDS ORDERED: Potassium Chlor 10 meq TAB PO ONE (14:15)
[2022-05-10] MEDS: Enoxaparin 30 MG/0.3 ML SYR SUBCUT SCH (14:41)
[2022-05-10] MEDS: Pantoprazole VIAL 40 MG VIAL IV SCH (15:27)
[2022-05-10] MEDS: Magic MouthWash1-BEN/MAAL/LIDO 180 ML BTL SWISH SPIT SCH ×2 (15:28→20:46)
[2022-05-10 17:15] LABS: DHEA 5.8 ng/mL (<6.0)
[2022-05-11 06:14] LABS: Hematocrit 25 % (35-47); Hemoglobin 8.5 g/dL (12.0-16.0); Mean Corpuscular HGB Conc 34 g/dL (31-36); Mean Corpuscular Hemoglobin 33 pg (27-31); Mean Corpuscular Volume 99 fL (80-97); Mean Platelet Volume 8.8 fL (7.4-10.4); Platelet Count 284 10^3/uL (150-450); Red Blood Count 2.54 10^6 /uL (3.70-4.87); Red Cell Distribution Width 14 % (10-15); White Blood Count 6.1 10^3/uL (3.5-10.8)
[2022-05-11 06:27] LABS: ABS Eosinophils 0.1 10^3/ul (0-0.6); ABS Monocytes 0.6 10^3/ul (0-0.8); ABS Neutrophils 3.5 10^3/ul (1.5-7.7); Eosinophil % 0.8 %; Lymphocyte % 32.6 %; Nucleated Red Blood Cells % 0.1
[2022-05-11 06:57] LABS: Calcium 7.8 mg/dL (8.6-10.3); Potassium 4.6 mmol/L (3.5-5.0)
[2022-05-11 07:02] LABS: eGFR CKD-EPI 116.1 (>60)
[2022-05-11] MEDS: Magic MouthWash1-BEN/MAAL/LIDO 180 ML BTL SWISH SPIT SCH ×4 (08:16→21:40)
[2022-05-11] MEDS: cefTRIAXone 2 gm/50 mL D5W 2 GM/50 ML BAG IV SCH (08:25)
[2022-05-11] MEDS: DOXYcycline 100 MG in NS 0.9% 250 ml 250 ML IVPB SCH (09:42)
[2022-05-11] MEDS: Enoxaparin 30 MG/0.3 ML SYR SUBCUT SCH (16:01)
[2022-05-11 20:09] LABS: Adenovirus Undetected (Undetected); Bordetella parapertussis Undetected (Undetected); Bordetella pertussis Undetected (Undetected); Chlamydophila pneumoniae Undetected (Undetected); Coronavirus 229E Undetected (Undetected); Coronavirus HKU1 Undetected (Undetected); Coronavirus NL63 Undetected (Undetected); Coronavirus OC43 Undetected (Undetected); Human Metapneumovirus Undetected (Undetected); Human Rhinovirus/Enterovirus Undetected (Undetected); Influenza A Undetected (Undetected); Influenza B Undetected (Undetected); Mycoplasmoides pneumoniae Undetected (Undetected); Parainfluenza Virus 1 Undetected (Undetected); Parainfluenza Virus 2 Undetected (Undetected); Parainfluenza Virus 3 Undetected (Undetected); Parainfluenza Virus 4 Undetected (Undetected); Respiratory Syncytial Virus Undetected (Undetected); Specimen Source NASOPHARYNGEAL SWAB
[2022-05-12 06:39] LABS: ABS Lymphocytes 1.8 10^3/ul (1.0-4.8); ABS Monocytes 0.5 10^3/ul (0-0.8); ABS Neutrophils 2.7 10^3/ul (1.5-7.7); Eosinophil % 0.9 %; Hematocrit 25 % (35-47); Hemoglobin 8.4 g/dL (12.0-16.0); Lymphocyte % 35.8 %; Mean Corpuscular HGB Conc 34 g/dL (31-36); Mean Corpuscular Hemoglobin 34 pg (27-31); Mean Corpuscular Volume 99 fL (80-97); Mean Platelet Volume 8.5 fL (7.4-10.4); Nucleated Red Blood Cells % 0.1; Platelet Count 365 10^3/uL (150-450); Red Blood Count 2.51 10^6 /uL (3.70-4.87); Red Cell Distribution Width 14 % (10-15); White Blood Count 5.1 10^3/uL (3.5-10.8)
[2022-05-12 06:54] LABS: Calcium 7.8 mg/dL (8.6-10.3); Potassium 4.2 mmol/L (3.5-5.0); eGFR CKD-EPI 118.4 (>60)
[2022-05-12] MEDS: Magic MouthWash1-BEN/MAAL/LIDO 180 ML BTL SWISH SPIT SCH ×4 (08:00→21:29)
[2022-05-12] MEDS: Enoxaparin 30 MG/0.3 ML SYR SUBCUT SCH (16:05)
[2022-05-13 07:32] LABS: ABS Basophils 0.1 10^3/ul (0-0.2); ABS Lymphocytes 2.2 10^3/ul (1.0-4.8); ABS Monocytes 0.5 10^3/ul (0-0.8); ABS Neutrophils 2.2 10^3/ul (1.5-7.7); Eosinophil % 0.7 %; Hematocrit 26 % (35-47); Hemoglobin 8.8 g/dL (12.0-16.0); Lymphocyte % 44.1 %; Mean Corpuscular HGB Conc 34 g/dL (31-36); Mean Corpuscular Hemoglobin 34 pg (27-31); Mean Corpuscular Volume 100 fL (80-97); Mean Platelet Volume 7.6 fL (7.4-10.4); Nucleated Red Blood Cells % 0.1; Platelet Count 471 10^3/uL (150-450); Red Blood Count 2.56 10^6 /uL (3.70-4.87); Red Cell Distribution Width 14 % (10-15); White Blood Count 4.9 10^3/uL (3.5-10.8)
[2022-05-13] MEDS: Magic MouthWash1-BEN/MAAL/LIDO 180 ML BTL SWISH SPIT SCH ×4 (08:16→20:23)
[2022-05-13 08:33] LABS: Potassium 4.6 mmol/L (3.5-5.0); eGFR CKD-EPI 116.8 (>60)
[2022-05-13] MEDS: Enoxaparin 30 MG/0.3 ML SYR SUBCUT SCH (16:14)
[2022-05-14] MEDS: Magic MouthWash1-BEN/MAAL/LIDO 180 ML BTL SWISH SPIT SCH ×4 (08:05→21:06)
[2022-05-14] MEDS: Enoxaparin 30 MG/0.3 ML SYR SUBCUT SCH (16:23)
[2022-05-15] MEDS: Magic MouthWash1-BEN/MAAL/LIDO 180 ML BTL SWISH SPIT SCH ×4 (08:37→22:00)
[2022-05-15] MEDS: Enoxaparin 30 MG/0.3 ML SYR SUBCUT SCH (16:33)
[2022-05-16] MEDS: Magic MouthWash1-BEN/MAAL/LIDO 180 ML BTL SWISH SPIT SCH ×2 (08:22→12:20)
[2022-05-16 17:42] VITALS: BP 94/52
== END 2022-05-16 13:25 | disposition home or self-care (01) | DRG 720 ==
LOC: ED 10:22 → ICU 15:17 → SUATTDRO 15:19 → ICU 15:19 → MEDTELE 05-09 22:32
PROVIDERS: ADMIT Surgery Surgical Critical Care; ATTEND Hospitalist